=== PATIENT | female | born 1985 | race Caucasian/White ===

== ENCOUNTER 2018-01-11 19:27 | Emergency (ER) | payer OTHER ==
[~2018-01-11] VITALS: Ht 121.9 cm; Wt 33.1 kg
[2018-01-11 19:30] VITALS: BP 110/61
--- NOTE | 2018-01-11 19:35 | NUR ---
PT WHEELCHAIR TO BED 7 WITH FAMILY. GAVE REPORT TO PUJA WEBBER
[2018-01-11 19:40] VITALS: BP 110/61
--- NOTE | 2018-01-11 19:40 | NUR ---
PATIENT IS A 32 Y/O FEMALE WHO PRESENTS TO THE ED C/O CHOKING. FAMILY STATES THAT SHE PRIMARILY EATS PUREED FOOD AND HAD AN EPISODE OF CHOKING TODAY AND ATTEMPTED [place]. PT DOES NOT APPEAR TO BE CHOKING AT THIS TIME, 97% O2 ON RA. PT APPEARS TO BE IN NO SIGNS OF PAIN. PT IN NO SIGNS OF CP, SOB, N/V/D. NOTED MENTAL DELAY IN PATIENT, RR EVEN/UNLABORED. PT REPOSITIONED FOR COMFORT, BED IN LOWEST POSITION. ER MD DR. MACHUCA NOTIFIED. WILL CONTINUE TO MONITOR.
--- NOTE | 2018-01-11 20:35 | NUR ---
PATIENT LEFT WITHOUT BEING SEEN BY DR. MACHUCA. NO FURTHER CARE PROVIDED FOR PATIENT.
== END 2018-01-11 20:35 | disposition left against medical advice (07) ==
LOC: MED 19:27
DX: R09.89 Other specified symptoms and signs involving the circulatory and respiratory systems (principal); Z53.21 Procedure and treatment not carried out due to patient leaving prior to being seen by health care provider